=== PATIENT | male | born 1955 | race Caucasian/White ===

== ENCOUNTER 2018-09-28 10:23 | Day surgery (SDC) | payer MEDICAID ==
--- NOTE | 2018-09-28 06:45 | History and Physical - Ferro ---
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 Due to the failure of therapy, a spinal cord stimulator trial was conducted with 75-85% pain control. Due to the failure of therapies and the success of the stimulator trial, the patient was referred to this facility for permanent implant. PAST MEDICAL HISTORY: Hypothyroidism. PAST SURGICAL HISTORY: Hand surgery, ankle surgery, and thoracic thoracotomy. EMPLOYMENT STATUS: Works full-time. MEDICATIONS ON ADMISSION: List to be provided. ALLERGIES: ADHESIVES. FAMILY/PSYCHOSOCIAL HISTORY: Social history - Smoking, social alcohol, and caffeine. Family history - Noncontributory. SYSTEMS REVIEW: The patient is appropriate in no acute distress. The remainder of the system review is positive for glasses and degenerative arthritis. PHYSICAL EXAMINATION: Height is 5'10", weight is 200 pounds. No vital signs. HEENT: Within normal limits. LUNGS: Clear. HEART: Rapid and regular. ABDOMEN: Nontender. MUSCULOSKELETAL: Examination of the musculoskeletal system shows the primary area of pain to be left chest wall. There appears to be a thoracotomy incision which approximates T6. The patient extends from the posterior mid to anterior axillary line. Sensory hurt are intact. NEUROLOGIC: Cranial nerves are intact. 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 PLAN: The patient is here for permanent implantation of a Nevro spinal cord stimulator. The procedure will be considered outpatient, although an overnight stay will be evaluated. The potential risks, side effects and complications have all been reviewed and discussed. JOB NUMBER: [id number] [facility]
[~2018-09-28 10:23] MED LIST: ACETAMINOPHEN 1,000 MG/100 ML BTL IV ONE; CEFAZOLIN 2 Gram 2 GM/50 ML BAG IVPB ONE; FAMOTIDINE 20MG TABLET PO ONE; MECLIZINE 25 MG TABLET PO ONE; METOCLOPRAMIDE 10 MG TABLET PO ONE
[2018-09-28] MEDS ORDERED: CEFAZOLIN 1G VIAL IM ONE (10:24)
[2018-09-28] MEDS ORDERED: MIDAZOLAM HCL 2MG/2ML VIAL IV ONE (10:24)
[2018-09-28] MEDS ORDERED: FENTANYL PF 100MCG/2ML VIAL IV ONE (10:24)
[2018-09-28] MEDS ORDERED: 0.9 % SODIUM CHLORIDE 10 ML VIAL IVP ONE (10:24)
[2018-09-28] MEDS ORDERED: LIDOCAINE 2% MDV (20MG/ML) 20ML VIAL IV ONE (10:24)
[2018-09-28] MEDS ORDERED: PROPOFOL 10 MG/ML VIAL IV ONE (10:24)
[2018-09-28] MEDS ORDERED: BUPIVACAINE 0.5% W/EPI MPF 30 ML VIAL SQ ONE ×2 (12:13)
[2018-09-28] MEDS ORDERED: LIDOCAINE 1% W/EPI 1:200,000 MPF 30ML SQ ONE ×2 (12:13)
[2018-09-28] MEDS ORDERED: RINGERS SOLUTION,LACTATED 500 ML IV ONE (13:06)
--- NOTE | 2018-09-29 20:22 | Operative Note ---
DATE OF SURGERY: 09/28/2018 PREOPERATIVE DIAGNOSIS: POST THORACOTOMY SYNDROME, ICD-10 CODE = G89.22 WITH THORACIC RADICULOPATHY, ICD -10 CODE = M54.15 AND M54.14. POSTOPERATIVE DIAGNOSIS: POST THORACOTOMY SYNDROME, ICD-10 CODE=G89.22 WITH THORACIC RADICULOPATHY, ICD- 10 CODE = M54.15 AND M54.14. SURGERY: 1. FLUOROSCOPIC-GUIDED EPIDURAL ACCESS LEFT T11-12, PLACEMENT OF SPINAL CORD STIMULATOR LEAD 1, A NEVRO OCTAPOLAR 8 ELECTRODES ADVANCED LEFT OF MIDLINE T1. 2. FLUOROSCOPIC-GUIDED EPIDURAL ACCESS LEFT 12-1, PLACEMENT OF SPINAL CORD STIMULATOR LEAD 2, A NEVRO OCTAPOLAR EIGHT ELECTRODES ADVANCED LEFT OF MIDLINE LATERAL TO LEAD 1, UPPER ELECTRODE T2. 3. COMPLEX PROGRAMMING OF LEAD 1 OVER 20 MINUTES, COMPLEX PROGRAMMING OF LEAD 2 OVER 20 MINUTES. 4. INCISION, SUBCUTANEOUS DISSECTION, AND ANCHORING OF LEAD 1 AND LEAD 2 TO SUPRASPINOUS FASCIA WITH A NEVRO LOCKING ANCHOR. 5. INCISION, SUBCUTANEOUS DISSECTION, AND CREATION OF SUBCUTANEOUS POUCH RIGHT FLANK, A SITE PICKED BY PATIENT FOR GENERATOR, A PROGRAMMABLE RECHARGEABLE NEVRO INTERNAL PULSE GENERATOR. 6. TUNNELING BETWEEN LEAD POUCH AND GENERATOR POUCH, PLACEMENT OF EXTERNAL PORTION OF LEAD 1 AND LEAD 2 INTO GENERATOR POUCH, INTERFACED WITH GENERATOR. 7. PLACEMENT OF GENERATOR INTO POUCH, PLACEMENT OF LEADS INTO POUCH, CLOSURE OF BOTH INCISIONS USING STRATAFIX SUTURE, #2-0 FASCIA AND #3-0 SKIN. DERMABOND CLOSURE. 8. COMPLEX RECOVERY ROOM PROGRAMMING INTERNAL GENERATOR 20 MINUTES. SURGEON: ZHENG NICHOLS D.O. PRIMARY CARE PHYSICIAN: DR. CONDE AND DR. VÍCTOR ARCHIBALD ANESTHESIA: LOCAL SEDATION. ANESTHESIA PROVIDER: MORGAN SMITH CRNA INDICATIONS: This patient presents with postthoracotomy chest wall pain to the left. Due to the failure of all therapy, a spinal cord stimulator trial was conducted with 75%+ pain control. Due to the failure of therapy and the success of the trial, he presents today for implantation of a permanent system. SURGERY: Intravenous line, vital sign monitoring, IV sedation. prepped and draped sterile technique, patient positioned prone. Sterile prep. Sterile technique. With local for infiltration, the epidural interspace left of midline at 11-12 and 12-1 were marked and infiltrated. Using two separate curved access Epimed needles with [id number], the space was accessed. At 11-12, spinal cord stimulator lead 1, a Nevro Octapolar 8 electrodes was advanced left of midline, upper electrode T1. With the access at 12-1, spinal cord stimulator lead 2, a Nevro Octapolar 8 electrodes was advanced slightly lateral to lead 1 left of the midline, upper electrode T2. With the patient awake, complex programming of lead 1 over 20 minutes followed by complex programming of lead 2 over 20 minutes resulting in a complete pattern of stimulation into the appropriate areas. Patient indicating we had the area covered. He was re- sedated. The skin above and below the needles was infiltrated, incision made, and subcutaneous dissection was conducted to the supraspinous fascia. Prior to the incision, he was given the option to continue, implant, or remove. He opted to continue with an implant. Questions had been repeated with the same response. After the skin was infiltrated, an incision was made and subcutaneous dissection was conducted to to the supraspinous fascia. The needles were removed and then each lead was anchored to the supraspinous fascia with a Nevro locking anchor. At the right flank, a site which was picked by the patient for the generator, skin infiltrated, incision made, and subcutaneous dissection was conducted to form a pouch of suitable size and depth for the generator, a Nevro programmable, rechargeable. A tunneling tool was then used to carry the leads into the generator pouch and then each lead was interfaced with the generator. Antibiotic irrigation and Bovie for hemostasis. With the generator in the pouch , the leads were placed into their own pouch. Both incisions were closed using STRATAFIX suture, #2-0 fascia and #3-0 skin. Dermabond closure was then used to approximate the edges of both wounds. He was transported to the Recovery Room stable. No side effects from the procedure or the sedation. When awake and alert in the Recovery Room, complex programming of the generator was performed over 20 minutes, reestablishing stimulation and to the appropriate areas. He was requesting to go home. DISCHARGE INSTRUCTIONS: 1. He was instructed on antibiotics and appropriate care of the wounds. He is not to take the Dermabond dressing off. He can shower but not sit in water or tubs. 2. Standard medications will be resumed including the antibiotic, Levaquin, 500 mg once a day for 14 days. 3. The office will contact the patient in the next 24 to 48 hours to set up a time in 7 to 10 days for us to evaluate the sites. Until then, he is to keep his activities low. Limit bend, lift, push, pull. All other instructions provided, numbers to contact if problems given. He was then discharged. cc: Dr. Conde and Dr. Víctor Archibald JOB NUMBER: [id number] MTDD
--- NOTE | 2018-09-30 07:56 | RADIOLOGY REPORT ---
DATE: 09/28/2018 at 1309 hours. EXAM: SINGLE VIEW OF THE THORACIC SPINE. HISTORY: SPINAL STIMULATOR DEVICE PLACEMENT. TECHNIQUE: A single AP view of the thoracic spine was obtained. COMPARISON: None. FINDINGS: Spinal stimulator electrodes are in place extending to the C7-T1 level. No complicating features are identified. Mild, chronic-appearing interstitial changes are present within both lungs. There is minor dextroconvex curvature within the mid thoracic spine. IMPRESSION: SPINAL STIMULATOR ELECTRODES EXTENDING TO THE C7-T1 LEVEL. Job Number: [id number] MTDD
== END 2018-09-28 14:26 | disposition home or self-care (01) ==
LOC: SUR 10:23
PROVIDERS: ATTEND Pain Medicine Interventional Pain Medicine
DX: G89.22 Chronic post-thoracotomy pain (principal); M54.15 Radiculopathy, thoracolumbar region; M54.14 Radiculopathy, thoracic region; E78.00 Pure hypercholesterolemia, unspecified
CPT/HCPCS: 72020; 95972; C1778; C1820; J0690; J7120